=== PATIENT | male | born 1995 | race Caucasian/White ===

== ENCOUNTER 2017-12-17 18:48 | Emergency (ER) | payer OTHER ==
[2017-12-17] MEDS: IBUPROFEN 800 MG TAB PO (23:47)
[2017-12-17] MEDS: LIDOCAINE 1% (MDV) 20 ML INJ SC (23:48)
[2017-12-17] MEDS: DIPHTH/TET/ACEL PERTUSS (ADULT) 0.5 ML VIAL IM* (23:48)
[2017-12-18] MEDS: BACITRACIN 0.9 GM OINT TOP (01:37)
== END 2017-12-18 01:56 | disposition home or self-care (01) ==
LOC: FTE 12-18 01:56
DX: S61.211A Laceration without foreign body of left index finger without damage to nail, initial encounter (principal); W22.8XXA Striking against or struck by other objects, initial encounter; Y92.89 Other specified places as the place of occurrence of the external cause; Z23 Encounter for immunization
CPT/HCPCS: 12001; 73130-LT; 90471; 90715; 99283-25